=== PATIENT | male | born 1985 | race Caucasian/White ===

== ENCOUNTER 2017-04-13 22:25 | Emergency (ER) | payer OTHER ==
[~2017-04-13] VITALS: Ht 175.3 cm; Wt 95.2 kg
[~2017-04-13 22:25] MED LIST: BUSP10TA PO; CIPR-9 PO
[2017-04-13 22:31] VITALS: BP 146/75; PULSE 96; RESP 16; TEMP 97.3; O2SAT 96
[2017-04-13 22:45] VITALS: BP 148/71; PULSE 66; RESP 20; O2SAT 93
[2017-04-13] MEDS ORDERED: SODIUM CHLOR 0.9% 1000 ML INJ 1,000 ML IV SCH (22:47)
[2017-04-13 23:00] VITALS: BP 157/81; PULSE 51; RESP 20; O2SAT 100
[2017-04-13] MEDS ORDERED: EPINEPHrine HCL (1:1000) 1 MG/ML VIAL IM ONE (23:00)
[2017-04-13] MEDS ORDERED: SODIUM CHLORIDE 0.9% FLUSH 10 ML FLUSH IV FLUSH PRN (23:00)
[2017-04-13] MEDS ORDERED: methylPREDNISolone SOD SUCC 125 MG/2 ML VIAL IM ONE (23:00)
[2017-04-13] MEDS ORDERED: FAMOTIDINE 20 MG/2 ML VIAL IV PUSH ONE (23:00)
[2017-04-13] MEDS ORDERED: PRED50 PO (23:08)
--- NOTE | 2017-04-13 23:08 | PD ---
HPI Chief Complaint: Allergic/Adverse Reaction Time Seen by Provider: 22:47 Travel History International Travel<30 days: No Contact w/Intl Traveler<30days: No Traveled to known affect area: No History of Present Illness HPI The patient is a 31-year-old male that at 9:45 PM tonight developed lip swelling , swelling in the throat, itching all over and skin turning red. He took 50 mg of Benadryl by mouth at about 10:15 PM tonight. He drove himself to the emergency department. He denies any wheezing or airway obstruction or syncopal or near syncopal spells. He denies any fever he had a similar episode 3 days ago which she thought was caused by Fish oil. He did not take any fish oil tonight. He states he has been eating earnest seeds on a daily basis with salads lately. He also a deviled eggs. He states he has never had any problem with vaccinations. He denies any diarrhea. PFSH Past Medical History Blood Disorders: No Anxiety: Yes Cancer: No Cardiovascular Problems: No Diminished Hearing: No Endocrine: No Gastrointestinal Disorders: No Genitourinary: No Immune Disorder: No Musculoskeletal: No Neurologic: No Psychiatric: No Respiratory: No Past Surgical History AICD: No Joint Replacement: No Pacemaker: No Other Surgery: Yes Social History Alcohol Use: Yes (pt states occ) Tobacco Use: Yes (06 23/ ppd) Substance Use: No Allergies-Medications (Allergen,Severity, Reaction): Coded Allergies: amoxicillin (Unverified Allergy, Severe, Itching, 02/04/17) Reported Meds & Prescriptions Reported Meds & Active Scripts Active Buspirone (Buspirone HCl) 10 Mg Tab 10 Mg PO BID Cipro (Ciprofloxacin HCl) 500 Mg Tab 500 Mg PO BID 10 Days Review of Systems Except as stated in HPI: all other systems reviewed are Neg Physical Exam Narrative GENERAL: The patient is alert, oriented 3, anxious appearing and moderate apparent distress with his pruritic skin rash. His vital signs show blood pressure 148/75 and heart rate of 96 but otherwise normal. Repeat vital signs show blood pressure 148/71 and otherwise completely normal. He is in no respiratory distress. SKIN: Focused skin assessment warm/dry. The skin is red everywhere. HEAD: Atraumatic. Normocephalic. EYES: Pupils equal and round. No scleral icterus. No injection or drainage. ENT: No nasal bleeding or discharge. Mucous membranes pink and moist. NECK: Trachea midline. No JVD. No stridor is present. CARDIOVASCULAR: Regular rate and rhythm. No murmur appreciated. RESPIRATORY: No accessory muscle use. Clear to auscultation. Breath sounds equal bilaterally. GASTROINTESTINAL: Abdomen soft, non-tender, nondistended. Hepatic and splenic margins not palpable. No guarding or rebound is present. MUSCULOSKELETAL: No obvious deformities. No clubbing. No cyanosis. No edema. NEUROLOGICAL: Awake and alert. No obvious cranial nerve deficits. Motor grossly within normal limits. Normal speech. PSYCHIATRIC: The patient appears anxious; insight and judgment normal. Data Data Last Documented VS Vital Signs Date Time Temp Pulse Resp B/P (MAP) Pulse Ox O2 Delivery O2 Flow Rate FiO2 04/13/17 22:47 73 20 96 Nasal Cannula 2.00 04/13/17 22:45 148/71 (96) 04/13/17 22:31 97.3 Orders Orders Basic Metabolic Panel (Bmp) (04/13/17 22:47) Complete Blood Count With Diff (04/13/17 22:47) Ecg Monitoring (04/13/17 22:47) Iv Access Insert/Monitor (04/13/17 22:47) Oximetry (04/13/17 22:47) Methylprednisolone So Succ Inj (Solumedr (04/13/17 23:00) Famotidine Inj (Pepcid Inj) (04/13/17 23:00) Sodium Chlor 0.9% 1000 Ml Inj (Ns 1000 M (04/13/17 22:47) Sodium Chloride 0.9% Flush (Ns Flush) (04/13/17 23:00) Epinephrine (1:1000) Inj (Adrenalin (1:1 (04/13/17 23:00) MDM Medical Decision Making Medical Screen Exam Complete: Yes Emergency Medical Condition: Yes Medical Record Reviewed: Yes Differential Diagnosis Allergic reaction, cellulitis-unlikely, contact dermatitis-unlikely, anxiety Narrative Course The patient appears to have a generalized allergic reaction. This may be due to food but also may be due to inhaled substances such as mold or pollens. Diagnosis Primary Impression: Allergic reaction Med/Other Pt SpecificInfo: Prescription(s) given Scripts Prednisone (Prednisone) 50 Mg Tab 50 MG PO BID for X 4 days than 1 daily X 4 days, #12 TAB 0 Refills Prov: Gaudencio Andrade MD 04/13/17 Disposition: 01 DISCHARGE HOME Condition: Stable Gaudencio Andrade MD Apr 13, 2017 23:08
[2017-04-13 23:10] LABS: AUTOMATED NEUTROPHIL # 4.4 TH/MM3 (1.8-7.7); BASOPHIL # 0.1 TH/MM3 (0-0.2); BASOPHIL % 0.8 % (0.0-2.0); EOSINOPHIL # 0.4 TH/MM3 (0-0.4); EOSINOPHIL % 4.7 % (0.0-4.0); HEMATOCRIT 49.6 % (39.0-51.0); LYMPH % 39.5 % (9.0-44.0); LYMPHOCYTE # 3.7 TH/MM3 (1.0-4.8); MEAN CELL VOLUME 83.6 FL (80.0-100.0); MEAN CORPUSCULAR HEMOGLOBIN 27.4 PG (27.0-34.0); MEAN CORPUSCULAR HGB CONC 32.8 % (32.0-36.0); MONO % 8.6 % (0.0-8.0); NEUT % 46.4 % (16.0-70.0); PLATELET COUNT 309 TH/MM3 (150-450); RED BLOOD COUNT 5.94 MIL/MM3 (4.50-5.90); WHITE BLOOD COUNT 9.4 TH/MM3 (4.0-11.0)
[2017-04-13 23:14] LABS: HEMO FLAGS DIFF FINAL
[2017-04-13 23:18] LABS: POTASSIUM 3.5 MEQ/L (3.5-5.1)
[2017-04-13 23:21] LABS: BICARBONATE 24.8 MEQ/L (21.0-32.0)
[2017-04-13 23:30] VITALS: BP 144/70; PULSE 52; RESP 20; O2SAT 99
[2017-04-13] MEDS ORDERED: DIPH25CA PO (23:33)
[2017-04-13] MEDS ORDERED: OMEGCAP PO (23:33)
[2017-04-14] MEDS ORDERED: EPIP0.3I IM (00:02)
[2017-04-14 00:37] VITALS: BP 150/70
== END 2017-04-14 00:41 | disposition home or self-care (01) ==
LOC: PHED 22:25
DX: T78.40XA Allergy, unspecified, initial encounter (principal)
CPT/HCPCS: 80048; 85025; 96361; 96372; 96374; 99284; J0171; J2930; J7030